=== PATIENT | male | born 1990 | race Asian ===

== ENCOUNTER 2018-12-18 09:13 | Day surgery (SDC) | payer OTHER ==
[2018-12-18] MEDS: CEFAZOLIN 2 GM/50 ML (PMX) 50 ML IVPB (06:00)
[2018-12-18] MEDS: SOD CHLORIDE 0.9% 1,000 ML IV (10:30)
[2018-12-18 10:33] LABS: ADD MAN DIFF? NO
[2018-12-18 10:35] LABS: BASOPHILS % 0.7 % (0.0-2.0); EOSINOPHILS # 0.3 10^3/ul (0.0-0.5); EOSINOPHILS % 4.3 % (0.0-7.0); HEMATOCRIT 48.5 % (42.0-52.0); HEMOGLOBIN 16.1 g/dl (14.0-18.0); LYMPHOCYTES # 1.7 10^3/ul (0.8-2.9); LYMPHOCYTES % 29.6 % (15.0-51.0); MEAN CORPUSCULAR HEMOGLOBIN 28.6 pg (29.0-33.0); MEAN CORPUSCULAR HGB CONC 33.2 g/dl (32.0-37.0); MEAN CORPUSCULAR VOLUME 86.1 fl (82.0-101.0); MEAN PLATELET VOLUME 10.7 fl (7.4-10.4); MONOCYTE # 0.5 10^3/ul (0.3-0.9); MONOCYTES % 8.1 % (0.0-11.0); NEUTROPHIL # 3.3 10^3/ul (1.6-7.5); NEUTROPHILS % 57.3 % (39.0-77.0); PLATELET COUNT 232 10^3/UL (140-415); RED BLOOD COUNT 5.63 10^6/ul (4.70-6.10); RED CELL DISTRIBUTION WIDTH 13.7 % (11.5-14.5)
[2018-12-18 10:35] LABS: WHITE BLOOD COUNT 5.8 10^3/ul (4.8-10.8)
[2018-12-18 10:53] LABS: ALANINE AMINOTRANSFERASE 32 IU/L (13-69); ALBUMIN 4.9 g/dl (3.3-4.9); ALBUMIN/GLOBULIN RATIO 1.48; ALKALINE PHOSPHATASE 64 IU/L (42-121); ANION GAP 9 (5-13); ASPARTATE AMINO TRANSFERASE 25 IU/L (15-46); BILIRUBIN,INDIRECT 0.6 mg/dl (0-1.1); BILIRUBIN,TOTAL 0.6 mg/dl (0.2-1.3); BLOOD UREA NITROGEN 14 mg/dl (7-20); CALCIUM 9.7 mg/dl (8.4-10.2); CARBON DIOXIDE 30 mmol/L (21-31); CHLORIDE 100 mmol/L (97-110); Estimated GFR > 60 mL/min (>60); GLUCOSE 148 mg/dl (70-220); POTASSIUM 4.3 mmol/L (3.5-5.1); SODIUM 139 mmol/L (135-144); TOTAL PROTEIN 8.2 g/dl (6.1-8.1)
[2018-12-18 10:54] LABS: CREATININE 0.57 mg/dl (0.61-1.24)
[2018-12-18 11:10] LABS: INR 0.89; PROTIME 12.1 Sec (11.9-14.9); PT RATIO 0.9
[2018-12-18 11:11] LABS: PARTIAL THROMBOPLASTIN TIME 33.4 Sec (23.0-35.0)
[2018-12-18] MEDS ORDERED: DESFLURANE 15 MIN (12:38)
[2018-12-18] MEDS ORDERED: PROPOFOL 20 ML (12:58)
[2018-12-18] MEDS ORDERED: ROCURONIUM 50 MG INJ (12:58)
[2018-12-18] MEDS ORDERED: FENTAnyl 50 MCG/ML VIAL (12:59)
[2018-12-18] MEDS ORDERED: ONDANSETRON 4 MG INJ (12:59)
[2018-12-18] MEDS ORDERED: CEFAZOLIN 1 GM INJ (12:59)
[2018-12-18] MEDS ORDERED: METOCLOPRAMIDE 10 MG INJ (12:59)
[2018-12-18] MEDS ORDERED: OXYCODONE/ACETAMINOPHEN (5/325) TAB PO ×2 (13:00)
[2018-12-18] MEDS ORDERED: HYDROmorphONE 1 MG/5 ML IV SYRINGE IV ×3 (13:00)
[2018-12-18] MEDS ORDERED: MEPERIDINE 25 MG INJ IV (13:00)
[2018-12-18] MEDS ORDERED: ONDANSETRON 4 MG INJ IV (13:00)
[2018-12-18] MEDS ORDERED: FENTAnyl 50 MCG/ML VIAL IV ×3 (13:00)
[2018-12-18] MEDS ORDERED: DIPHENHYDRAMINE 50 MG INJ IV (13:00)
[2018-12-18] MEDS ORDERED: NEOSTIGMINE 3 MG/3 ML SYRINGE (13:14)
[2018-12-18] MEDS ORDERED: GLYCOPYRROLATE 0.4 MG INJ (13:14)
[2018-12-18] MEDS ORDERED: KETOROLAC 30 MG INJ (13:16)
[2018-12-18] MEDS: BUPIVACAINE 0.5% (SDV) 30 ML INJ (14:00)
[2018-12-18] MEDS: LIDOCAINE 2% (MDV) 20 ML INJ (14:00)
[2018-12-18] MEDS: HYDROCODONE/APAP (5/325) TAB PO (14:29)
== END 2018-12-18 15:27 | disposition home or self-care (01) ==
LOC: SDS 09:13
DX: L72.0 Epidermal cyst (principal); L90.5 Scar conditions and fibrosis of skin; E11.9 Type 2 diabetes mellitus without complications
CPT/HCPCS: 11404; 80053; 82962; 85025; 85610; 85730; 88307